=== PATIENT | male | born 1980 | race Hispanic/Latino ===

== ENCOUNTER 2018-08-25 14:04 | Emergency (ER) | payer BC ==
--- NOTE | 2018-08-25 16:10 | RAD REPORT ---
EXAM DESCRIPTION: aKte Crowell (2 Views)08/25/2018 3:44 pm CLINICAL HISTORY: Cough COMPARISON: 2017 FINDINGS: The lungs appear clear of acute infiltrate. The heart is mildly enlarged IMPRESSION: No acute abnormalities displayed
--- NOTE | 2018-08-25 16:13 | ER ---
Nurse's Notes [facility] Name: Jessica Monroy Age: 38 yrs Sex: Male : 1980 Arrival Date: 08/25/2018 Time: 14:05 Bed 17 Private MD: None, None Diagnosis: Influenza due to other identified influenza virus Presentation: 08/25 14:22 Presenting complaint: Patient states: cough, congestion, flu like symptoms since Friday, I feel like I cannot breathe, and I get very anxious. I cant drink because when I drink I vomit. then I panic. Transition of care: patient was not received from another setting of care. Onset of symptoms was August 23, 2018. Risk Assessment: Do you want to hurt yourself or someone else? Patient reports no desire to harm self or others. Initial Sepsis Screen: Does the patient meet any 2 criteria? No. Patient's initial sepsis screen is negative. Does the patient have a suspected source of infection? No. Patient's initial sepsis screen is negative. Care prior to arrival: Medication(s) given: emily Winston quvicki. 14:22 Method Of Arrival: Ambulatory 14:22 Acuity: BALTA 4 Triage Assessment: 14:26 General: Appears in no apparent distress. uncomfortable, Behavior is calm, cooperative, appropriate for age. Pain: Complains of pain in abdomen Pain currently is 3 out of 10 on a pain scale. Historical: - Allergies: 14:26 PENICILLINS; - Home Meds: 14:26 Claritin 10 mg Oral tab 1 tab once daily [Active]; - PMHx: 14:26 allergies; mrsa L knee 2016; - PSHx: 14:26 None; L knee; - Immunization history:: Adult Immunizations up to date, Flu vaccine is not up to date. - Social history:: Smoking status: Patient uses tobacco products, smokes one pack cigarettes per day. Patient uses alcohol, but reports only rare drinking. Patient/guardian denies using street drugs. - Ebola Screening: : Patient negative for fever greater than or equal to 101.5 degrees Fahrenheit, and additional compatible Ebola Virus Disease symptoms Patient denies exposure to infectious person Patient denies travel to an Ebola-affected area in the 21 days before illness onset No symptoms or risks identified at this time. - Family history:: not pertinent. - Hospitalizations: : No recent hospitalization is reported. Screenin:00 Abuse screen: Denies threats or abuse. Denies injuries from another. Nutritional jl7 screening: No deficits noted. Tuberculosis screening: No symptoms or risk factors identified. Fall Risk None identified. Assessment: 15:00 General: Appears in no apparent distress. uncomfortable, Behavior is calm, cooperative, jl7 appropriate for age. Pain: Denies pain. Neuro: Level of Consciousness is awake, alert, obeys commands, Oriented to person, place, time, situation. Cardiovascular: Patient's skin is warm and dry. Respiratory: Airway is patent Respiratory effort is even, unlabored, Respiratory pattern is regular, symmetrical, Breath sounds are clear bilaterally. EENT: Oral mucosa is moist. Throat is clear is pink bilaterally. Derm: Skin is pink, warm \T\ dry. 16:16 Reassessment: Patient appears in no apparent distress at this time. No changes from jl7 previously documented assessment. Patient and/or family updated on plan of care and expected duration. Pain level reassessed. Patient is alert, oriented x 3, equal unlabored respirations, skin warm/dry/pink. Vital Signs: 14:26 Pulse 101; Resp 22; Temp 98.3; Pulse Ox 98% on R/A; Weight 99.79 kg; Height 5 ft. 3 in. (160.02 cm); Pain 3/10; 16:16 BP 130 / 101; Pulse 101; Resp 18 S; Temp 98.4(O); Pulse Ox 97% on R/A; jl7 14:26 Body Mass Index 38.97 (99.79 kg, 160.02 cm) ED Course: 14:05 Patient arrived in ED. ag5 14:06 None, None is Private Physician. 5 14:25 Triage completed. 14:26 Arm band placed on left wrist. Patient placed in waiting room. 14:42 Anjana Frank RN is Primary Nurse. jl7 14:42 Reji Bermeo MD is Attending Physician. rn 14:48 Flu and/or RSV swab sent to lab. Strep swab sent to lab. jl7 15:00 Patient has correct armband on for positive identification. Bed in low position. Call [facility] emergency light in reach. Side rails up X 1. 15:00 No provider procedures requiring assistance completed. Patient did not have IV access jlFani during this emergency room visit. 15:45 XRAY Chest Pa And Lat (2 Views) In Process Unspecified. EDMS Administered Medications: No medications were administered Outcome: 16:13 Discharge ordered by . rn 16:26 Discharged to home ambulatory. jl7 16:26 Condition: stable 16:26 Discharge instructions given to patient, family, Instructed on discharge instructions, follow up and referral plans. medication usage, Demonstrated understanding of instructions, follow-up care, medications, Prescriptions given X 2. 16:27 Patient left the ED. jl7 Signatures: Dispatcher [employer] EDMS Franchesca Priest, RN RN Reji Guevara MD MD rn Leal, Jahala, RN RN jl7 Krunal Martinez ag5
--- NOTE | 2018-08-25 16:14 | EDPHYS ---
Physician Documentation [facility] Name: Jessica Monroy Age: 38 yrs Sex: Male : 1980 Arrival Date: 08/25/2018 Time: 14:05 Bed 17 Private MD: None, None ED Physician Reji Bermeo HPI: 08/25 16:03 This 38 yrs old Male presents to ER via Ambulatory with complaints of Cold rn Symptoms, Anxiety. 16:03 The patient or guardian reports cough, with no sputum, flu symptoms. Onset: The rn symptoms/episode began/occurred 2 day(s) ago. Severity of symptoms: At their worst the symptoms were mild, in the emergency department the symptoms are unchanged. Modifying factors: The symptoms are alleviated by nothing, the symptoms are aggravated by nothing. The patient has not experienced similar symptoms in the past. The patient has not recently seen a physician. 16:07 Reports sinus congestion and cough for 2 days, + subjective fever. . rn Historical: - Allergies: 14:26 PENICILLINS; ch - Home Meds: 14:26 Claritin 10 mg Oral tab 1 tab once daily [Active]; ch - PMHx: 14:26 allergies; mrsa L knee 2016; ch - PSHx: 14:26 None; L knee; ch - Immunization history:: Adult Immunizations up to date, Flu vaccine is not up to date. - Social history:: Smoking status: Patient uses tobacco products, smokes one pack cigarettes per day. Patient uses alcohol, but reports only rare drinking. Patient/guardian denies using street drugs. - Ebola Screening: : Patient negative for fever greater than or equal to 101.5 degrees Fahrenheit, and additional compatible Ebola Virus Disease symptoms Patient denies exposure to infectious person Patient denies travel to an Ebola-affected area in the 21 days before illness onset No symptoms or risks identified at this time. - Family history:: not pertinent. - Hospitalizations: : No recent hospitalization is reported. ROS: 16:07 Constitutional: + fever Eyes: Negative for injury, pain, redness, and discharge, ENT: + rn sinus congestion and runny nose Cardiovascular: Negative for chest pain, palpitations, and edema, Respiratory: Negative for wheezing, and pleuritic chest pain, Abdomen/GI: Negative for abdominal pain, nausea, vomiting, diarrhea, and constipation, Back: Negative for injury and pain, MS/Extremity: Negative for injury and deformity, Skin: Negative for injury, rash, and discoloration, Neuro: Negative for headache, weakness, numbness, tingling, and seizure. Exam: 16:07 Constitutional: This is a well developed, well nourished patient who is awake, alert, rn appears anxious Head/Face: Normocephalic, atraumatic. Eyes: Pupils equal round and reactive to light, extra-ocular motions intact. Lids and lashes normal. Conjunctiva and sclera are non-icteric and not injected. Cornea within normal limits. Periorbital areas with no swelling, redness, or edema. ENT: No stridor, clear nasal drainage Neck: Trachea midline, no thyromegaly or masses palpated, and no cervical lymphadenopathy. Supple, full range of motion without nuchal rigidity, or vertebral point tenderness. No Meningismus. Cardiovascular: Regular rate and rhythm. No gallops, murmurs, or rubs. No pulse deficits. Respiratory: Lungs have equal breath sounds bilaterally, clear to auscultation. No increased work of breathing, no retractions or nasal flaring. Abdomen/GI: soft, non-tender MS/ Extremity: Pulses equal, no cyanosis. Neuro: Awake and alert, GCS 15, oriented to person, place, time, and situation. Vital Signs: 14:26 Pulse 101; Resp 22; Temp 98.3; Pulse Ox 98% on R/A; Weight 99.79 kg; Height 5 ft. 3 in. ch (160.02 cm); Pain 3/10; 16:16 BP 130 / 101; Pulse 101; Resp 18 S; Temp 98.4(O); Pulse Ox 97% on R/A; jl7 14:26 Body Mass Index 38.97 (99.79 kg, 160.02 cm) MDM: 14:42 Patient medically screened. rn 16:12 Differential Diagnosis: Bronchitis Influenza Upper Respiratory Infection Viral Syndrome rn Pneumonia. Data reviewed: vital signs, nurses notes, lab test result(s), radiologic studies, plain films, and as a result, I will discharge patient. Counseling: I had a detailed discussion with the patient and/or guardian regarding: the historical points, exam findings, and any diagnostic results supporting the discharge/admit diagnosis, lab results, radiology results, the need for outpatient follow up, to return to the emergency department if symptoms worsen or persist or if there are any questions or concerns that arise at home. Special discussion: I discussed with the patient/guardian in detail that at this point there is no indication for admission to the hospital. It is understood, however, that if the symptoms persist or worsen the patient needs to return immediately for re-evaluation. 08/25 14:30 Order name: Flu; Complete Time: 14:50 08/25 14:30 Order name: Strep; Complete Time: 14:50 08/25 14:30 Order name: XRAY Chest Pa And Lat (2 Views); Complete Time: 16:12 08/25 14:50 Order name: Throat Culture EDMS Administered Medications: No medications were administered Disposition: 08/25/18 16:13 Discharged to Home. Impression: Influenza due to other identified influenza virus. - Condition is Stable. - Discharge Instructions: Influenza, Adult. - Prescriptions for Tamiflu 75 mg Oral Capsule - take 1 capsule by ORAL route every 12 hours for 5 days; 10 capsule. Afrin (oxymetazoline) 0.05 % Nasal Aerosol, [place] - spray 2 spray by INTRANASAL route 2 times per day; 1 Container. - Medication Reconciliation Form, Thank You Letter, Antibiotic Education, Prescription Opioid Use, Work release form form. - Follow up: Private Physician; When: As needed; Reason: Recheck today's complaints, Re-evaluation by your physician. - Problem is new. - Symptoms have improved. Signatures: Dispatcher [employer] EDMS Franchesca Priest RN RN Reji Bermeo MD MD rn Leal, Jahala, RN RN jl7 Corrections: (The following items were deleted from the chart) 16:27 16:13 08/25/2018 16:13 Discharged to Home. Impression: Influenza due to other jl7 identified influenza virus. Condition is Stable. Forms are Work release form, Medication Reconciliation Form, Thank You Letter, Antibiotic Education, Prescription Opioid Use. Follow up: Private Physician; When: As needed; Reason: Recheck today's complaints, Re-evaluation by your physician. Problem is new. Symptoms have improved. rn
[2018-08-25 17:06] VITALS: TEMP 98.3; O2SAT 98
== END 2018-08-25 16:27 | disposition home or self-care (01) ==
LOC: ER 14:04
DX: J10.1 Influenza due to other identified influenza virus with other respiratory manifestations (principal); F17.210 Nicotine dependence, cigarettes, uncomplicated; Z88.0 Allergy status to penicillin
CPT/HCPCS: 71046; 87070; 87081; 87804; 99283